=== PATIENT | female | born 1965 | race African-American/Black ===

== ENCOUNTER 2018-08-12 15:39 | Emergency (ER) | payer OTHER ==
[~2018-08-12] VITALS: Ht 170.2 cm; Wt 133.8 kg
[~2018-08-12 15:39] MED LIST: CEPHALEXIN500 MG PO; CYCLOBENZAPRINE10 MG ORAL; IBUPROFEN600 MG ORAL; NORCO 5-325 TA1 EACH ORAL
[2018-08-12] MEDS ORDERED: NKM (15:50)
[2018-08-12 15:52] VITALS: BP 112/65
--- NOTE | 2018-08-12 15:52 | NUR ---
ED Nurse Note: AMBULATED IN TO ER DUE TO LOWER BACK PAIN SINCE YESTERDAY. NO RECENT INJURY, NO HEAVY LIFTING. patient rates her pain a 10/10 pain, patient is alert and oriented x4, ambulatory with a steady gait, VSS
[2018-08-12] MEDS ORDERED: NAPROXEN500 M2 ORAL (16:07)
--- NOTE | 2018-08-12 16:07 | Emergency Room Report ---
History of Present Illness General Chief Complaint: Back Pain-No Injury Source: Patient Present Illness HPI 53-year-old female with a of hypertension currently controlled with medication here complaining of 1 day of increased pain in the left buttocks radiating to the posterior left thigh and all the way down to her left foot. She denies injury or fall, denying pain radiation to the pubic area, denies urinary symptoms, fever and chills. Patient is rating the pain 10 out of 10, has taken ibuprofen with minimal relief, and has an appointment with her primary doctor tomorrow. Denies numbness however complains of minimal tingling. Denies other injuries, chest pain, palpitation, S OB, and all other associated symptoms. Patient is morbidly obese and mentions that in the past patient reports that she was sitting down as her pain started the pain is worse when sitting and when standing however improves when walking or laying down. Allergies: Coded Allergies: No Known Allergies (Unverified , 08/12/18) Patient History Past Medical History: see triage record Past Surgical History: unable to obtain Pertinent Family History: none Last Menstrual Period: JULY 2018 Now: No Immunizations: UTD Reviewed Nursing Documentation: PMH: Agreed; PSxH: Agreed Nursing Documentation-PMH Past Medical History: No Stated History Review of Systems All Other Systems: negative except mentioned in HPI Physical Exam Vital Signs Date Time Temp Pulse Resp B/P (MAP) Pulse Ox O2 Delivery O2 Flow Rate FiO2 08/12/18 15:48 98.1 80 16 112/65 (81) 97 Room Air Sp02 EP Interpretation: reviewed, normal General Appearance: normal inspection, well appearing, no apparent distress, GCS 15 Head: normocephalic, atraumatic Eyes: bilateral eye normal inspection, bilateral eye PERRL ENT: normal ENT inspection Neck: normal inspection, full range of motion Respiratory: normal inspection, chest non-tender, lungs clear, no wheezing Cardiovascular #1: normal inspection, regular rate, rhythm, no edema, no murmur , normal capillary refill Cardiovascular #2: 2+ dorsalis pedis (R), 2+ dorsalis pedis (L) Gastrointestinal: normal inspection, non tender Genitourinary: no CVA tenderness Musculoskeletal: normal inspection, back normal, other - Straight leg test is positive on the left side Neurologic: normal inspection, alert, oriented x3, responsive Psychiatric: normal inspection, judgement/insight normal, memory normal Skin: normal inspection, normal color, no rash, warm/dry Lymphatic: normal inspection, no adenopathy Medical Decision Making PA Attestation All diagnosis and treatment plans were reviewed and discussed with my supervising physician Diagnostic Impression: Primary Impression: Sciatic leg pain ER Course 53-year-old female with a of hypertension currently controlled with medication here complaining of 1 day of increased pain in the left buttocks radiating to the posterior left thigh and all the way down to her left foot. She denies injury or fall, denying pain radiation to the pubic area, denies urinary symptoms, fever and chills. Patient is rating the pain 10 out of 10, has taken ibuprofen with minimal relief, and has an appointment with her primary doctor tomorrow. Denies numbness however complains of minimal tingling. Denies other injuries, chest pain, palpitation, S OB, and all other associated symptoms. Patient is morbidly obese and mentions that in the past patient reports that she was sitting down as her pain started the pain is worse when sitting and when standing however improves when walking or laying down. Ddx considered but are not limited to left sciatica, lumbar and sacral strain, lumbar sacral sprain Vital signs: are WNL, pt. is afebrile H&PE are most consistent with left sciatica ORDERS: Toradol 60 , naproxen ED INTERVENTIONS: Toradol 60mg IM DISCHARGE: At this time pt. is stable for d/c to home. Will provide printed patient care instructions, and any necessary prescriptions. Care plan and follow up instructions have been discussed with the patient prior to discharge. Patient advised to lose weight, MRI negative and follow-up with your primary doctor Last Vital Signs Date Time Temp Pulse Resp B/P (MAP) Pulse Ox O2 Delivery O2 Flow Rate FiO2 08/12/18 15:48 98.1 80 16 112/65 (81) 97 Room Air Disposition: HOME, SELF-CARE Condition: Stable Scripts Naproxen* (NAPROXEN*) 500 Mg Tablet 500 MG ORAL TWICE A DAY, #30 TAB Prov: Court Swann 08/12/18 Patient Instructions: Sciatica Additional Instructions: Primary care provider for follow-up as well as referral for physical therapy Court Swann Aug 12, 2018 16:07
[2018-08-12] MEDS ORDERED: Ketorolac 60mg Inj IM ONE (16:15)
[2018-08-12 16:20] VITALS: BP 132/65
--- NOTE | 2018-08-12 16:20 | NUR ---
ER DISCHARGE NOTE: Patient is cleared to be discharged per ERMD, pt is aox4, on room air, with stable vital signs. pt was given dc and prescription instructions, pt was able to verbalize understanding, pt id band removed without complications. pt is able to ambulate with steady gait. pt took all belongings.
== END 2018-08-12 16:20 | disposition home or self-care (01) ==
LOC: EMR 16:07
DX: M54.32 Sciatica, left side (principal)
CPT/HCPCS: 96372; 99283

== ENCOUNTER 2020-03-15 10:51 | Emergency (ER) | payer OTHER ==
[~2020-03-15] VITALS: Ht 170.2 cm; Wt 140.6 kg
[~2020-03-15 10:51] MED LIST changes: +NAPROXEN500 M2 ORAL; +NKM
[2020-03-15 11:02] VITALS: BP 113/63
--- NOTE | 2020-03-15 12:03 | NUR ---
ED Nurse Note: Pt aaox4. ambulatory. Pt walked in to ED from home c/o SOB x last week. Pt stated she feels something is stuck in her thoat. O2 94% RA at triage. Pt. is attached to nurse monitoring and has 96-97% RA.
[2020-03-15 12:13] LABS: BASOPHILS % (AUTO) 1.6 % (0.0-2.0); EOSINOPHILS % (AUTO) 3.8 % (0.0-3.0); HEMATOCRIT 38.6 % (37.0-47.0); HEMOGLOBIN 12.2 G/DL (12.0-16.0); LYMPHOCYTES % (AUTO) 22.1 % (20.0-45.0); MEAN CORPUSCULAR VOLUME 85 FL (80-99); MONOCYTES % (AUTO) 7.7 % (1.0-10.0); NEUTROPHILS % (AUTO) 64.7 % (45.0-75.0); PLATELET COUNT 340 K/UL (150-450); RED BLOOD COUNT 4.54 M/UL (4.20-5.40); RED CELL DISTRIBUTION WIDTH 14.4 % (11.6-14.8)
[2020-03-15 12:35] LABS: ANION GAP 7 mmol/L (5-15); BLOOD UREA NITROGEN 10 mg/dL (7-18); CALCIUM 8.7 MG/DL (8.5-10.1); CARBON DIOXIDE 26 MMOL/L (21-32); CHLORIDE 106 MMOL/L (98-107); CREATININE 0.7 MG/DL (0.55-1.30); POTASSIUM 4.6 MMOL/L (3.5-5.1); SODIUM 139 MMOL/L (136-145)
[2020-03-15] MEDS ORDERED: Bamlanivimab Fact Sheet MISC ONE (12:45)
[2020-03-15] MEDS ORDERED: Bamlanivimab 700 MG in NS 275 ML IVPB SCH (12:45)
[2020-03-15 12:47] LABS: ALANINE AMINOTRANSFERASE 24 U/L (12-78); ALBUMIN 2.8 G/DL (3.4-5.0); ALBUMIN/GLOBULIN RATIO 0.6 (1.0-2.7); ALKALINE PHOSPHATASE 90 U/L (46-116); ASPARTATE AMINO TRANSFERASE 45 U/L (15-37); BILIRUBIN,TOTAL 0.5 MG/DL (0.2-1.0)
--- NOTE | 2020-03-15 13:05 | Emergency Room Report ---
History of Present Illness General Chief Complaint: Dyspnea/Respdistress Source: Patient (Rafiq Price MD) Present Illness HPI 54-year-old female presents for evaluation. States for about 1 week now she has been feeling weak body aches. Denies chest pain or shortness of breath. Denies cough. Denies sick contacts or recent travel. No other aggravating relieving factors. 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 (Rafiq Price MD) Patient History Past Medical History: none Past Surgical History: none Pertinent Family History: none Social History: Denies: smoking, alcohol use, drug use Now: No Immunizations: UTD Reviewed Nursing Documentation: PMH: Agreed; PSxH: Agreed (Rafiq Price MD) Nursing Documentation-PMH Past Medical History: No Stated History (Rafiq Price MD) Review of Systems All Other Systems: negative except mentioned in HPI (Rafiq Price MD) Physical Exam Vital Signs Date Time Temp Pulse Resp B/P (MAP) Pulse Ox O2 Delivery O2 Flow Rate FiO2 03/15/20 10:56 98.2 77 19 113/63 (80) 94 Room Air Sp02 EP Interpretation: reviewed, normal General Appearance: no apparent distress, alert, GCS 15, non-toxic, obese Head: normocephalic, atraumatic Eyes: bilateral eye normal inspection, bilateral eye PERRL ENT: hearing grossly normal, normal pharynx, no angioedema, normal voice Neck: full range of motion, supple/symm/no masses Respiratory: chest non-tender, lungs clear, normal breath sounds, speaking full sentences Cardiovascular #1: regular rate, rhythm, no edema Cardiovascular #2: 2+ carotid (R), 2+ carotid (L), 2+ radial (R), 2+ radial (L), 2+ dorsalis pedis (R), 2+ dorsalis pedis (L) Gastrointestinal: normal bowel sounds, non tender, soft, non-distended, no guarding, no rebound Rectal: deferred Genitourinary: normal inspection, no CVA tenderness Musculoskeletal: back normal, normal range of motion, gait/station normal, non- tender Neurologic: alert, motor strength/tone normal, oriented x3, sensory intact, responsive, speech normal Psychiatric: judgement/insight normal, memory normal, mood/affect normal, no suicidal/homicidal ideation Reflexes: 3+ bicep (R), 3+ bicep (L), 3+ tricep (R), 3+ tricep (L), 3+ knee (R), 3+ knee (L) Lymphatic: no adenopathy (Rafiq Price MD) Medical Decision Making Diagnostic Impression: Primary Impression: COVID-19 Additional Impression: Pneumonia Laboratory Tests Test 03/15/20 11:49 White Blood Count 6.0 K/UL (4.8-10.8) Red Blood Count 4.54 M/UL (4.20-5.40) Hemoglobin 12.2 G/DL (12.0-16.0) Hematocrit 38.6 % (37.0-47.0) Mean Corpuscular Volume 85 FL (80-99) Mean Corpuscular Hemoglobin 26.9 PG (27.0-31.0) L Mean Corpuscular Hemoglobin Concent 31.6 G/DL (32.0-36.0) L Red Cell Distribution Width 14.4 % (11.6-14.8) Platelet Count 340 K/UL (150-450) Mean Platelet Volume 6.5 FL (6.5-10.1) Neutrophils (%) (Auto) 64.7 % (45.0-75.0) Lymphocytes (%) (Auto) 22.1 % (20.0-45.0) Monocytes (%) (Auto) 7.7 % (1.0-10.0) Eosinophils (%) (Auto) 3.8 % (0.0-3.0) H Basophils (%) (Auto) 1.6 % (0.0-2.0) Sodium Level 139 MMOL/L (136-145) Potassium Level 4.6 MMOL/L (3.5-5.1) Chloride Level 106 MMOL/L (98-107) Carbon Dioxide Level 26 MMOL/L (21-32) Anion Gap 7 mmol/L (5-15) Blood Urea Nitrogen 10 mg/dL (7-18) Creatinine 0.7 MG/DL (0.55-1.30) Estimat Glomerular Filtration Rate > 60 mL/min (>60) Glucose Level 205 MG/DL (74-106) H Calcium Level 8.7 MG/DL (8.5-10.1) Total Bilirubin 0.5 MG/DL (0.2-1.0) Aspartate Amino Transf (AST/SGOT) 45 U/L (15-37) H Alanine Aminotransferase (ALT/SGPT) 24 U/L (12-78) Alkaline Phosphatase 90 U/L (46-116) Troponin I 0.000 ng/mL (0.000-0.056) Pro-B-Type Natriuretic Peptide 84 pg/mL (0-125) Total Protein 7.8 G/DL (6.4-8.2) Albumin 2.8 G/DL (3.4-5.0) L Globulin 5.0 g/dL Albumin/Globulin Ratio 0.6 (1.0-2.7) L (Rafiq Price MD) ER Course Assumed care of the patient from the previous provider at approximately 1400. Please refer to initial note for full history and physical exam. Briefly, this a 54-year-old female presenting for flulike symptoms. Tested positive for COVID-19. She meets criteria for monoclonal antibody infusion which is currently underway. Patient has bilateral infiltrates consistent with Covid pneumonia. Started on a Zithromax. No reactions to infusion. She is well-appearing stable for outpatient follow-up with PMD. Instructed to return with new or worsening symptoms. Understands and agrees with the treatment plan. (Jah Hubbard MD) EKG Diagnostic Results Troponin ordered: Yes Rate: normal Rhythm: NSR ST Segments: no acute changes ASA given to the pt in ED: No (Rafiq Price MD) Rhythm Strip Diag. Results EP Interpretation: yes Rhythm: NSR, no PVC's, no ectopy (Rafiq Price MD) Chest X-Ray Diagnostic Results Chest X-Ray Diagnostic Results : Chest X-Ray Ordered: Yes # of Views/Limited/Complete: 1 View Indication: Shortness of Breath EP Interpretation: Yes Interpretation: no pneumothorax, other - patchy bilateral opacities Impression: Other - pneumonia Electronically Signed by: Electronically signed by Rafiq Price MD (Rafiq Price MD) Last Vital Signs Date Time Temp Pulse Resp B/P (MAP) Pulse Ox O2 Delivery O2 Flow Rate FiO2 03/15/20 11:02 98.2 77 19 113/63 94 Room Air Status: improved (Rafiq Price MD) Disposition: HOME, SELF-CARE Condition: Stable Scripts Azithromycin* (ZITHROMAX*) 250 Mg Tablet 250 MG ORAL DAILY, #6 TAB 0 Refills Take two tables once daily for 1 day, then one tablet once daily for 4 days. Prov: Jah Hubbard MD 03/15/20 Referrals: [facility],REFERRING (PCP) Rafiq Price MD Mar 15, 2020 13:05 Jah Hubbard MD Mar 15, 2020 14:54
--- NOTE | 2020-03-15 14:09 | Diagnostic Imaging Report ---
Indication: Shortness of breath Technique: One view of the chest Comparison: none Findings: There are extensive bilateral infiltrates. The heart size is normal. The pleural spaces are clear Impression: Bilateral infiltrates, likely multifocal pneumonia, likely viral
[2020-03-15] MEDS ORDERED: ZITHROMAX250 MG ORAL (14:48)
[2020-03-15 15:40] VITALS: BP 120/66
--- NOTE | 2020-03-15 15:40 | NUR ---
ED Nurse Note: No reactions noted after infusing Bam; pt monitored after infusion. Pt cleared by health care Provider for discharge. DC instructions/prescription was given and explained to pt and verbalized understanding of teachings. Instructed pt to follow up with PCP and self isolate. All medical deviecs such as ID band removed and IV removed; site clean and bandaged. Pt is AAO x4, ambulatory and left with all personal belongings.
--- NOTE | 2020-03-17 02:23 | Cardiology Report ---
APPROVED REPORT EKG Measurement Heart [id number] ID [id number] <Conclusion> Sinus rhythm with occasional premature ventricular complexes Incomplete right bundle branch block Left posterior fascicular block Inferior infarct, age undetermined Abnormal ECG
== END 2020-03-15 15:40 | disposition home or self-care (01) ==
LOC: EMR 11:40
DX: U07.1 COVID-19 (principal); J18.9 Pneumonia, unspecified organism
CPT/HCPCS: 71045; 80053; 83880; 84484; 85025; 93005; 96361; 96365; J7050; Q0239; U0002; U0004; Z7502; 99284